=== PATIENT | female | born 2000 | race Hispanic/Latino ===

== ENCOUNTER 2019-01-17 00:08 | Emergency (ER) | payer SELFPAY ==
--- NOTE | 2019-01-17 01:19 | XRay Report ---
PROCEDURE: XR CHEST 1V AP TECHNIQUE: Chest radiograph single view. HISTORY: Chest Pain COMPARISONS: None . FINDINGS: Heart: Normal. Mediastinum/Vessels: Normal. Lungs/Pleural space: Normal. Bony thorax: No acute osseous abnormality. Life support devices: None. IMPRESSION: No acute cardiopulmonary abnormality. This document is electronically signed by Adi Cleaning MD., Jan 17 2019 01:17:19 AM ET
[2019-01-17] MEDS ORDERED: IBUPROFEN PO ONE (03:40)
--- NOTE | 2019-01-17 04:47 | Emergency Department Report ---
ED General Adult HPI - General Chief complaint: Chest Pain Stated complaint: CHEST PAIN Time Seen by Provider: 01/17/19 03:35 Source: patient Mode of arrival: Ambulatory Limitations: No Limitations - History of Present Illness Initial comments: pt presents for chest wall pain with deep inspiration and movement for pst 3 days with cough no sob no wheezing no fever no chills no n/v Onset/Timin -: days(s) Location: chest Radiation: non-radiation Severity scale (0 -10): 5 Quality: sharp Consistency: intermittent Improves with: none Worsens with: none Associated Symptoms: chest pain, cough. denies: fever/chills, nausea/vomiting, rash, seizure, shortness of breath, syncope, weakness Treatments Prior to Arrival: none - Related Data Previous Rx's Medication Instructions Recorded Last Taken Type Ibuprofen [Motrin 800 MG tab] 800 mg PO Q8HR PRN #30 tablet NS 01/17/19 Unknown Rx Allergies Allergy/AdvReac Type Severity Reaction Status Date / Time No Known Allergies Allergy Unverified 01/17/19 00:10 ED Review of Systems ROS: Stated complaint: CHEST PAIN Other details as noted in HPI Constitutional: denies: chills, fever Eyes: denies: eye pain, eye discharge, vision change ENT: denies: ear pain, throat pain Respiratory: other (chest wall pain ). denies: cough, shortness of breath, wheezing Cardiovascular: denies: chest pain, palpitations Endocrine: no symptoms reported Gastrointestinal: denies: abdominal pain, nausea, diarrhea Genitourinary: denies: urgency, dysuria, discharge Musculoskeletal: denies: back pain, joint swelling, arthralgia Skin: denies: rash, lesions Neurological: denies: headache, weakness, paresthesias Psychiatric: denies: anxiety, depression Hematological/Lymphatic: denies: easy bleeding, easy bruising ED Past Medical Hx - Past Medical History Previous Medical History?: No - Surgical History Past Surgical History?: No - Social History Smoking Status: Never Smoker Substance Use Type: None - Medications Home Medications: Home Medications Medication Instructions Recorded Confirmed Last Taken Type Ibuprofen [Motrin 800 MG tab] 800 mg PO Q8HR PRN #30 tablet NS 01/17/19 Unknown Rx ED Physical Exam - General Limitations: No Limitations General appearance: alert, in no apparent distress - Head Head exam: Present: atraumatic, normocephalic - Eye Eye exam: Present: normal appearance, PERRL, EOMI Pupils: Present: normal accommodation - ENT ENT exam: Present: normal orophraynx, mucous membranes moist, TM's normal bilaterally, normal external ear exam - Neck Neck exam: Present: normal inspection, full ROM. Absent: tenderness, lymphadenopathy, thyromegaly - Respiratory Respiratory exam: Present: normal lung sounds bilaterally, chest wall tenderness (left lateral chest wall pain ). Absent: respiratory distress, wheezes, stridor - Cardiovascular Cardiovascular Exam: Present: regular rate, normal rhythm, normal heart sounds. Absent: systolic murmur, diastolic murmur, rubs, gallop - GI/Abdominal GI/Abdominal exam: Present: soft, normal bowel sounds. Absent: bruit, hernia - Rectal Rectal exam: Present: deferred - Extremities Exam Extremities exam: Present: normal inspection, normal capillary refill - Back Exam Back exam: Present: normal inspection, full ROM. Absent: tenderness, CVA tenderness (R), CVA tenderness (L), rash noted - Neurological Exam Neurological exam: Present: alert, oriented X3, CN II-XII intact, normal gait, reflexes normal. Absent: motor sensory deficit - Psychiatric Psychiatric exam: Present: normal affect, normal mood - Skin Skin exam: Present: warm, dry, intact, normal color. Absent: rash ED Course Vital Signs 01/17/19 00:10 Temperature 98.3 F Pulse Rate 99 H Respiratory 16 Rate Blood Pressure 130/69 O2 Sat by Pulse 100 Oximetry ED Medical Decision Making - EKG Data EKG shows normal: sinus rhythm, axis, intervals, QRS complexes, ST-T waves Rate: normal - EKG Data When compared to previous EKG there are: previous EKG unavailable Interpretation: normal EKG (ekg interp by ed attending ) - Radiology Data Radiology results: report reviewed, image reviewed Ordering Physician: ED MD CORDELL Date of Service: 01/17/19 Procedure(s): XR chest 1V ap Accession Number(s): [id number] cc: ED MD CORDELL Fluoro Time In Minutes: PROCEDURE: XR CHEST 1V AP TECHNIQUE: Chest radiograph single view. HISTORY: Chest Pain COMPARISONS: None . FINDINGS: Heart: Normal. Mediastinum/Vessels: Normal. Lungs/Pleural space: Normal. Bony thorax: No acute osseous abnormality. Life support devices: None. IMPRESSION: No acute cardiopulmonary abnormality. This document is electronically signed by Eula Yen MD., Jan 17 2019 01:17:19 AM ET Transcribed By: CO Dictated By: EULA YEN MD Electronically Authenticated By: EULA YEN MD Signed Date/Time: 01/17/19 0119 DD/ TD/TT: 01/17/1936 - Medical Decision Making this is chest wall pain , improved with ibuprofen , no sob , ekg: NSR no st elevated mi, cxr normal, pt will follow up with pcp, return to ed if symptoms worsen. Critical care attestation.: If time is entered above; I have spent that time in minutes in the direct care of this critically ill patient, excluding procedure time. ED Disposition Clinical Impression: Chest wall pain Disposition: -01 TO HOME OR SELFCARE Is pt being admited?: No Does the pt Need Aspirin: No Condition: Stable Instructions: Chest Pain (ED), Costochondritis (ED) Prescriptions: Ibuprofen [Motrin 800 MG tab] 800 mg PO Q8HR PRN #30 tablet NS PRN Reason: Pain , Severe (7-10) Referrals: PRIMARY CARE, [Primary Care Provider] - 3-5 Days Forms: Work/School Release Form(ED) Time of Disposition: 04:42
[2019-01-17 04:53] VITALS: BP 134/84
== END 2019-01-17 04:52 | disposition home or self-care (01) ==
LOC: ED 00:08
DX: R07.89 Other chest pain (principal)
CPT/HCPCS: 71045; 93005; 93010

== ENCOUNTER 2019-05-31 14:47 | Emergency (ER) | payer SELFPAY ==
--- NOTE | 2019-05-31 15:23 | Event Note ---
ED Screening Note Date of service: 05/31/19 Time: 15:21 ED Screening Note: This is a 19 y.o. F. that presents to the ER with left knee pain s/p ground level fall yesterday. LMP 05/26/2019 This initial assessment/diagnostic orders/clinical plan/treatment(s) is/are subject to change based on patients health status, clinical progression and re- assessment by fellow clinical providers in the ED. Further treatment and workup at subsequent clinical providers discretion. Patient/guardian urged not to elope from the ED as their condition may be serious if not clinically assessed and managed. Initial orders include: XR left knee
[2019-05-31 15:24] VITALS: BP 145/81
--- NOTE | 2019-05-31 16:03 | XRay Report ---
LEFT KNEE 3 VIEWS INDICATION / CLINICAL INFORMATION: Fall with left posterior knee pain and swelling. COMPARISON: None available. FINDINGS: BONES / JOINT(S): The joint spaces are well-maintained. There is no evidence of fracture or dislocati on. There is minimal suprapatellar joint effusion. SOFT TISSUES: No significant abnormality. ADDITIONAL FINDINGS: None. IMPRESSION: Minimal suprapatellar joint effusion without acute osseous abnormality. Signer Name: Charles Poole MD Signed: 05/31/2019 3:58 PM Workstation Name: [id number]
[2019-05-31] MEDS ORDERED: IBUPROFEN 800 MG TAB PO ONE (17:27)
--- NOTE | 2019-05-31 17:28 | Emergency Department Report ---
ED General Adult HPI - General Chief complaint: Extremity Injury, Lower Stated complaint: LFT KNEE PAIN Time Seen by Provider: 05/31/19 15:21 Source: patient Mode of arrival: Ambulatory Limitations: No Limitations - History of Present Illness Initial comments: This is a 19-year-old female presents with left knee pain began yesterday after a ground-level fall. She states she had a misstep and accidentally slipped and fell and hit her left knee. Patient states that pain is worsened with extension and applied pressure Patient denies any loss of consciousness, injury to the head or neck. - Related Data Previous Rx's Medication Instructions Recorded Last Taken Type Ibuprofen [Motrin 800 MG tab] 800 mg PO Q8HR PRN #30 tablet NS 05/31/19 Unknown Rx Allergies Allergy/AdvReac Type Severity Reaction Status Date / Time No Known Allergies Allergy Unverified 01/17/19 00:10 ED Review of Systems ROS: Stated complaint: LFT KNEE PAIN Other details as noted in HPI Comment: All other systems reviewed and negative ED Past Medical Hx - Past Medical History Previous Medical History?: No - Surgical History Past Surgical History?: No - Social History Smoking Status: Never Smoker Substance Use Type: None - Medications Home Medications: Home Medications Medication Instructions Recorded Confirmed Last Taken Type Ibuprofen [Motrin 800 MG tab] 800 mg PO Q8HR PRN #30 tablet NS 05/31/19 Unknown Rx ED Physical Exam - General Limitations: No Limitations General appearance: alert, in no apparent distress - Head Head exam: Present: atraumatic, normocephalic - Eye Eye exam: Present: normal appearance - ENT ENT exam: Present: mucous membranes moist - Neck Neck exam: Present: normal inspection - Respiratory Respiratory exam: Present: normal lung sounds bilaterally. Absent: respiratory distress - Cardiovascular Cardiovascular Exam: Present: regular rate, normal rhythm. Absent: systolic murmur, diastolic murmur, rubs, gallop - GI/Abdominal GI/Abdominal exam: Present: soft, normal bowel sounds - Extremities Exam Extremities exam: Present: normal inspection, full ROM, tenderness (mild tenderness to palpation of the left anterior knee.), normal capillary refill. Absent: joint swelling, calf tenderness - Back Exam Back exam: Present: normal inspection, full ROM. Absent: tenderness, CVA tenderness (R), CVA tenderness (L) - Neurological Exam Neurological exam: Present: alert, oriented X3 - Psychiatric Psychiatric exam: Present: normal affect, normal mood - Skin Skin exam: Present: warm, dry, intact, normal color. Absent: rash ED Course Vital Signs 05/31/19 05/31/19 15:21 17:42 Temperature 98.3 F Pulse Rate 96 H Respiratory 20 18 Rate Blood Pressure 145/81 O2 Sat by Pulse 100 Oximetry ED Medical Decision Making - Radiology Data Radiology results: report reviewed, image reviewed LEFT KNEE 3 VIEWS INDICATION / CLINICAL INFORMATION: Fall with left posterior knee pain and swelling. COMPARISON: None available. FINDINGS: BONES / JOINT(S): The joint spaces are well-maintained. There is no evidence of fracture or dislocation. There is minimal suprapatellar joint effusion. SOFT TISSUES: No significant abnormality. ADDITIONAL FINDINGS: None. IMPRESSION: Minimal suprapatellar joint effusion without acute osseous abnormality. Signer Name: Charles Poole MD Signed: 05/31/2019 3:58 PM Workstation Name: [id number] Transcribed By: RT Dictated By: Charles Poole MD Electronically Authenticated By: Charles Poole MD Signed Date/Time: 05/31/19 1558 - Medical Decision Making 19-year-old female presents to ED with knee sprain from fall yesterday ED course: Patient received Motrin in ED. Vital signs are normal patient is in no acute distress Discussed with patient follow-up with primary care physician. Discussed the patient and take medications as prescribed. Patient has no neurological deficit. Patient is alert and oriented 3 and understands all instructions given. Discussed drowsiness effect of Flexeril makes her drowsy and not to operate machinery while taking flexeril Critical care attestation.: If time is entered above; I have spent that time in minutes in the direct care of this critically ill patient, excluding procedure time. ED Disposition Clinical Impression: Arthralgia of knee, left, Knee pain, left Disposition: DC-01 TO HOME OR SELFCARE Is pt being admited?: No Does the pt Need Aspirin: No Condition: Stable Instructions: Arthralgia (ED), Knee Sprain (ED) Additional Instructions: Make sure to follow up with the primary care physician as discussed. Take all your medications as you've been prescribed. If you have any worsening symptoms or develop new symptoms please return to ED immediately. Prescriptions: Ibuprofen [Motrin 800 MG tab] 800 mg PO Q8HR PRN #30 tablet NS PRN Reason: Pain , Severe (7-10) Referrals: PRIMARY CARE, [Primary Care Provider] - 3-5 Days [facility] [Provider Group] - 3-5 Days Forms: Work/School Release Form(ED) Time of Disposition: 18:26
== END 2019-05-31 18:56 | disposition home or self-care (01) ==
LOC: ED 14:47
DX: M25.562 Pain in left knee (principal)

== ENCOUNTER 2021-03-28 01:51 | Emergency (ER) | payer SELFPAY ==
[2021-03-28] MEDS ORDERED: ONDANSETRON 4 MG ODT TAB PO/SL ONE (05:16)
[2021-03-28 05:43] LABS: Bacteria,Urine 1+ /HPF (Negative); Bilirubin,Urine NEG (Negative); Blood,Urine NEG (Negative); Color,Urine Yellow (Yellow); Mucus,Urine FEW /HPF
[2021-03-28 06:22] LABS: Hematocrit 40.8 % (30.3-42.9); Hemoglobin 13.6 gm/dl (10.1-14.3); Mean Corpuscular HGB Conc 33 % (30-34); Mean Corpuscular Volume 83 fl (79-97); Platelet Count 109 K/mm3 (140-440); Red Blood Count 4.91 M/mm3 (3.65-5.03); Red Cell Distribution Width 15.4 % (13.2-15.2)
[2021-03-28 06:34] LABS: Blood Urea Nitrogen 4 mg/dL (7-17); Calcium 8.8 mg/dL (8.4-10.2); Hemolysis Index 2
[2021-03-28 06:35] LABS: BUN/Creatinine Ratio 7
[2021-03-28 07:55] LABS: Platelet Estimate Consistent w Auto; RBC Morphology Normal; Total Cells Counted 100
[2021-03-28] MEDS ORDERED: ONDANSETRON 4 MG ODT TAB PO ONE (08:15)
[2021-03-28] MEDS ORDERED: POTASSIUM CHLORIDE ER 20 MEQ TAB PO ONE (08:16)
[2021-03-28 08:17] VITALS: BP 119/72
[2021-03-28 08:18] LABS: HCG Qualitative,Urine Negative (Negative)
--- NOTE | 2021-03-28 08:50 | Emergency Department Report ---
ED Abdominal Pain HPI - General Chief Complaint: Abdominal Pain Stated Complaint: VOMITING/BODY ACHES Time Seen by Provider: 03/28/21 07:55 Source: patient Mode of arrival: Ambulatory Limitations: No Limitations - History of Present Illness Initial Comments: 21-year-old female, no past medical history, presents to ED with nausea and vomiting, abdominal pain. Patient reports nausea and mid abdominal pain x4 days. States she began vomiting on yesterday. She also reports body aches as well. Patient denies any fever, cough, shortness of breath, diarrhea. He denies any sick contacts. She denies any vaginal bleeding or discharge, dysuria or urinary frequency. MD Complaint: abdominal pain -: days(s) (4) Location: periumbilical Radiation: none Migration to: no migration Severity: mild Severity scale (0 -10): 3 Quality: sharp Consistency: intermittent Improves With: nothing Worsens With: nothing Associated Symptoms: nausea, vomiting. denies: diarrhea, fever, dysuria - Related Data Previous Rx's Medication Instructions Recorded Last Taken Type Ibuprofen [Motrin 800 MG tab] 800 mg PO Q8HR PRN #30 tablet NS 05/31/19 Unknown Rx Dicyclomine [Bentyl] 20 mg PO QID PRN #20 tablet 03/28/21 Unknown Rx Naproxen [Naprosyn] 500 mg PO BID #20 tablet 03/28/21 Unknown Rx Ondansetron [Zofran Odt] 4 mg PO Q8HR PRN #20 tab.rapdis 03/28/21 Unknown Rx Allergies Allergy/AdvReac Type Severity Reaction Status Date / Time No Known Allergies Allergy Unverified 01/17/19 00:10 ED Review of Systems ROS: Stated complaint: VOMITING/BODY ACHES Other details as noted in HPI Comment: All other systems reviewed and negative Constitutional: denies: chills, fever Respiratory: denies: cough, shortness of breath Gastrointestinal: abdominal pain, nausea, vomiting. denies: diarrhea Genitourinary: denies: dysuria, frequency, discharge ED Past Medical Hx - Social History Smoking Status: Never Smoker Substance Use Type: None - Medications Home Medications: Home Medications Medication Instructions Recorded Confirmed Last Taken Type Ibuprofen [Motrin 800 MG tab] 800 mg PO Q8HR PRN #30 tablet NS 05/31/19 Unknown Rx Dicyclomine [Bentyl] 20 mg PO QID PRN #20 tablet 03/28/21 Unknown Rx Naproxen [Naprosyn] 500 mg PO BID #20 tablet 03/28/21 Unknown Rx Ondansetron [Zofran Odt] 4 mg PO Q8HR PRN #20 tab.rapdis 03/28/21 Unknown Rx ED Physical Exam - General Limitations: No Limitations General appearance: alert, in no apparent distress - Head Head exam: Present: atraumatic, normocephalic - Eye Eye exam: Present: normal appearance, EOMI - ENT ENT exam: Present: mucous membranes moist - Neck Neck exam: Present: normal inspection - Respiratory Respiratory exam: Present: normal lung sounds bilaterally. Absent: respiratory distress - Cardiovascular Cardiovascular Exam: Present: regular rate, normal rhythm - GI/Abdominal GI/Abdominal exam: Present: soft. Absent: distended, tenderness - Extremities Exam Extremities exam: Present: normal inspection - Neurological Exam Neurological exam: Present: alert, oriented X3 - Psychiatric Psychiatric exam: Present: normal affect, normal mood - Skin Skin exam: Present: warm, dry, intact, normal color ED Course Vital Signs 03/28/21 03/28/21 03/28/21 05:12 08:16 08:20 Temperature 99.2 F 98.7 F Pulse Rate 92 H 75 Respiratory 18 17 Rate Blood Pressure 119/76 Blood Pressure 119/72 [Right] O2 Sat by Pulse 97 97 Oximetry ED Medical Decision Making - Lab Data Result diagrams: 03/28/21 05:29 03/28/21 05:29 - Medical Decision Making 21-year-old female with nausea and abdominal pain x4 days, 1 day of actual e mesis. Vital signs are stable. Patient is afebrile. WBCs are low at 1.9. Patient has no knowledge of having a low WBC count. Potassium is also slightly low at 3.3. Remainder of labs are unremarkable. No evidence of UTI on UA. On exam abdomen is soft and nontender. No emesis here in the ED. Patient will be discharged at this time with prescriptions. 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 Return precautions given. - Differential Diagnosis , UTI, gastroenteritis Critical care attestation.: If time is entered above; I have spent that time in minutes in the direct care of this critically ill patient, excluding procedure time. ED Disposition Clinical Impression: Abdominal pain, Leukopenia, Nausea and vomiting Disposition: DC-01 TO HOME OR SELFCARE Is pt being admited?: No Condition: Stable Instructions: White Blood Cell Count Test, Abdominal Pain, Adult, [id number], Nausea, Adult, [id number], Abdominal Pain (ED) Prescriptions: Dicyclomine [Bentyl] 20 mg PO QID PRN #20 tablet PRN Reason: abdominal pain Naproxen [Naprosyn] 500 mg PO BID #20 tablet Ondansetron [Zofran Odt] 4 mg PO Q8HR PRN #20 tab.rapdis PRN Reason: Vomiting Referrals: GELY TELLO DO [Staff Physician] - 3-5 Days GREG LEONE MD [Staff Physician] - 3-5 Days Time of Disposition: 08:58
== END 2021-03-28 09:29 | disposition home or self-care (01) ==
LOC: ED 01:51
DX: D72.819 Decreased white blood cell count, unspecified (principal); R11.2 Nausea with vomiting, unspecified; R10.9 Unspecified abdominal pain; Z79.899 Other long term (current) drug therapy
CPT/HCPCS: 36415; 80048; 81001; 81025; 85007; 85025; Q0162